=== PATIENT | female | born 1985 | race Caucasian/White ===

== ENCOUNTER 2022-04-22 08:13 | Inpatient (IN) | payer BC ==
[2022-04-18 14:59] LABS: BASOPHILS # (AUTO) 0.1 (0.0-0.1); BASOPHILS % 0.6 % (0.0-1.0); EOSINOPHILS # (AUTO) 0.1 (0.0-0.4); EOSINOPHILS % 0.6 % (0.0-6.0); HEMATOCRIT 43.1 % (34.2-44.1); LYMPHOCYTES # (AUTO) 2.8 (1.0-3.2); LYMPHOCYTES % 22.5 % (18.0-39.1); MEAN CORPUSCULAR HEMOGLOBIN 31.7 pg (28-32); MEAN CORPUSCULAR HGB CONC 32.5 g/dL (31-35); MEAN CORPUSCULAR VOLUME 97.7 fL (81-99); MONOCYTES # (AUTO) 0.8 (0.2-0.8); MONOCYTES % 6.6 % (4.4-11.3); NEUTROPHILS # (AUTO) 8.7 (2.1-6.9); NEUTROPHILS % 69.5 % (38.7-80.0); PLATELET COUNT 421 x10e3/uL (140-360); RED BLOOD COUNT 4.41 x10e6/uL (3.6-5.1); RED CELL DISTRIBUTION WIDTH 11.7 % (11.7-14.4)
[~2022-04-22] VITALS: Ht 160 cm; Wt 104.8 kg
[~2022-04-22 08:13] MED LIST: MELATONIN3 MG PO
[2022-04-22] MEDS ORDERED: SCOPOLAMINE 1 MG PATCH TOP SCH ×2 (08:15→12:45)
[2022-04-22] MEDS ORDERED: ONDANSETRON HCL INJ 2MG/ML 2ML 2 MG/ML VIAL IV PRN (08:15)
[2022-04-22] MEDS ORDERED: BUPIVACAINE HCL 0.25% 10ML MPF VIAL INJ ONE (10:20)
[2022-04-22] MEDS ORDERED: HYDROXYZINE HCL 50 MG/ML VIAL IM ONE (10:40)
[2022-04-22] MEDS ORDERED: SUGAMMADEX SODIUM 200 MG/2 ML VIAL IV ONE (13:05)
[2022-04-22] MEDS ORDERED: FENTANYL CITRATE/PF 100MCG/2 ML INJ ONE (13:41)
[2022-04-22] MEDS ORDERED: DEXAMETHASONE SOD PHOS INJ 4 MG/ML SDV ONE (13:56)
[2022-04-22] MEDS ORDERED: PROPOFOL IV EMULSION 10 MG/ML 20 ML VIAL ONE (13:56)
[2022-04-22] MEDS ORDERED: LIDOCAINE HCL 2% LOCAL INJ 5 ML SDV VIAL INJ ONE (13:56)
[2022-04-22] MEDS ORDERED: POVIDONE IODINE 0.05% 0.05 % ML PO ONE (13:56)
[2022-04-22] MEDS ORDERED: ACETAMINOPHEN 1000 MG/100 ML IV ONE (13:56)
[2022-04-22] MEDS ORDERED: ONDANSETRON HCL INJ 2MG/ML 2ML 2 MG/ML VIAL ONE (13:56)
[2022-04-22] MEDS ORDERED: SEVOFLURANE INHAL SOLN 250 ML PEN BTL ONE (13:56)
[2022-04-22] MEDS ORDERED: ROCURONIUM BROMIDE 10 MG/ML 5ML VIAL IV ONE (13:56)
[2022-04-22 15:05] VITALS: BP 113/78
[2022-04-22 15:07] VITALS: BP 130/82
[2022-04-22] MEDS: Morphine 2mg Syringe 2 MG/ML SYR IV PRN ×4 (15:38→23:54)
[2022-04-22 15:50] VITALS: BP 113/78
[2022-04-22] MEDS: SODIUM CHLORIDE 0.9% 1000ML 1,000 ML IV SCH (15:50)
[2022-04-22 20:00] VITALS: BP 122/77
[2022-04-22] MEDS: ENOXAPARIN SOD INJ 40 MG/0.4 ML SYR SC SCH (20:52)
[2022-04-23 01:42] VITALS: BP 119/85
[2022-04-23 05:16] VITALS: BP 136/84
[2022-04-23 05:16] LABS: BASOPHILS % 0.2 % (0.0-1.0); HEMATOCRIT 39.5 % (34.2-44.1); HEMOGLOBIN 12.8 g/dL (12.0-16.0); LYMPHOCYTES # (AUTO) 2.2 (1.0-3.2); LYMPHOCYTES % 14.8 % (18.0-39.1); MEAN CORPUSCULAR HEMOGLOBIN 31.3 pg (28-32); MEAN CORPUSCULAR HGB CONC 32.4 g/dL (31-35); MEAN CORPUSCULAR VOLUME 96.6 fL (81-99); MONOCYTES # (AUTO) 1.2 (0.2-0.8); MONOCYTES % 8.6 % (4.4-11.3); NEUTROPHILS % 76.1 % (38.7-80.0); PLATELET COUNT 375 x10e3/uL (140-360); RED BLOOD COUNT 4.09 x10e6/uL (3.6-5.1); RED CELL DISTRIBUTION WIDTH 11.6 % (11.7-14.4)
[2022-04-23] MEDS: SODIUM CHLORIDE 0.9% 1000ML 1,000 ML IV SCH ×2 (05:34→08:15)
[2022-04-23] MEDS: HYDROCODONE/APAP 7.5MG-325MG 1 EA TAB PO PRN ×2 (05:39→09:41)
[2022-04-23 05:42] LABS: ALBUMIN 3.6 g/dL (3.5-5.0); ALBUMIN/GLOBULIN RATIO 1.2 (0.8-2.0); ANION GAP 18.3 mmol/L (8-16); CALCIUM 8.3 mg/dL (8.4-10.2); CREATININE, SERUM 0.67 mg/dL (0.57-1.11); MAGNESIUM 2.1 MG/DL (1.3-2.1); PHOSPHORUS 4.1 MG/DL (2.3-4.7); POTASSIUM 4.3 mmol/L (3.5-5.1)
[2022-04-23 08:16] VITALS: BP 124/82
[2022-04-23 08:43] VITALS: BP 124/82
[2022-04-23] MEDS: ENOXAPARIN SOD INJ 40 MG/0.4 ML SYR SC SCH (09:36)
== END 2022-04-23 10:59 | disposition home or self-care (01) | DRG 621 ==
LOC: OR 08:13 → PACU V 13:40 → MED/SURG 14:15
PROVIDERS: ADMIT Internal Medicine; ATTEND Internal Medicine
PROC: 0DB64Z3 Excision of Stomach, Percutaneous Endoscopic Approach, Vertical (ICD-10-PCS; principal; 2022-04-22 11:55)
DX: E66.01 Morbid (severe) obesity due to excess calories (principal); Z68.41 Body mass index [BMI] 40.0-44.9, adult; I10 Essential (primary) hypertension; Z20.822 Contact with and (suspected) exposure to COVID-19; G47.00 Insomnia, unspecified; J30.2 Other seasonal allergic rhinitis
CPT/HCPCS: 0223U; 36415; 80053; 81025; 83735; 84100; 85025; 94799; C1713; J0690; J1100; J1650; J2001; J2270; J2405; J3010; J7030; Q0177